=== PATIENT | female | born 1955 | race African-American/Black ===

== ENCOUNTER 2023-01-05 19:06 | Inpatient (IN) | payer OTHER ==
[~2023-01-05] VITALS: Ht 170.2 cm; Wt 104.3 kg
[2023-01-05] MEDS ORDERED: AMIODARONE 150 MG in IV D5W 100 ML IV ONE (19:30)
[2023-01-05] MEDS ORDERED: AMIODARONE 450 MG in IV D5W 250 ML IV ONE (19:30)
[2023-01-05] MEDS ORDERED: IV NS 0.9% 1,000 ML BAG IV ONE (19:30)
[2023-01-05 19:43] LABS: BASOPHILS # (AUTO) 0.2 K/uL (0.0-0.2); BASOPHILS % (AUTO) 2.1 % (0.0-2.0); EOSINOPHILS # (AUTO) 0.3 K/uL (0.0-0.7); EOSINOPHILS % (AUTO) 2.9 % (0.0-6.0); HEMATOCRIT 45 % (33-45); HEMOGLOBIN 14.6 g/dL (11.5-14.8); LYMPHOCYTES # (AUTO) 1.8 K/uL (0.8-4.8); LYMPHOCYTES % (AUTO) 16.5 % (20.0-44.0); MEAN CORPUSCULAR HEMOGLOBIN 30 PG (26.0-33.0); MEAN CORPUSCULAR HGB CONC 33 g/dl (31.0-36.0); MEAN CORPUSCULAR VOLUME 93 fL (82-100); MONOCYTES # (AUTO) 0.3 K/uL (0.1-1.30); MONOCYTES % (AUTO) 2.4 % (2.0-12.0); NEUTROPHILS # (AUTO) 8.4 K/uL (1.8-8.9); NEUTROPHILS % (AUTO) 76.1 % (43.0-81.0); PLATELET COUNT (AUTO) 274 K/uL (150-450); RED BLOOD CELL COUNT(AUTO) 4.82 MIL/uL (4.0-5.2); RED CELL DISTRIBUTION WIDTH 13.9 % (11.5-15.0); WHITE BLOOD COUNT (AUTO) 11.1 K/uL (4.3-11.0)
[2023-01-05] MEDS ORDERED: FENTANYL PF 100MCG/2ML AMPUL IV ONE (20:00)
[2023-01-05] MEDS ORDERED: FENTANYL PF 100MCG/2ML AMPUL ONE (20:00)
[2023-01-05] MEDS ORDERED: ONDANSETRON HCL/PF 4 MG/2 ML VIAL ONE (20:00)
[2023-01-05] MEDS ORDERED: ONDANSETRON HCL/PF 4 MG/2 ML VIAL IV ONE (20:00)
[2023-01-05 20:06] LABS: CALCIUM, SERUM 9.7 mg/dL (8.5-10.1); CARBON DIOXIDE 22 mmol/L (21-32); CHLORIDE 97 mmol/L (98-107); CREATININE 1.2 mg/dL (0.6-1.3); GLUCOSE 334 mg/dL (74-106); POTASSIUM 4.3 mmol/L (3.5-5.1); SODIUM SERUM 133 mmol/L (136-145); UREA NITROGEN, BLOOD 11 mg/dL (7-18)
[2023-01-05 20:18] LABS: NT-PRO BNP 65 pg/mL (0-125)
[2023-01-05 21:37] LABS: EOSINOPHILS % (MANUAL) 2 % (0-4); LYMPHOCYTES % (MANUAL) 29 % (16-48); MONOCYTES % (MANUAL) 7 % (0-11.0); NEUTROPHILS % (MANUAL) 62 (42-76); PLATELET ESTIMATE ADEQUATE
[2023-01-05] MEDS ORDERED: MAGNESIUM HYDROXIDE 30 ML UDC PO PRN (22:00)
[2023-01-05] MEDS ORDERED: MORPHINE SULFATE INJ 2 MG/ML DISP.SYRIN IV PRN (22:00)
[2023-01-05] MEDS ORDERED: HYDROCODONE/APAP 5/325MG TABLET PO PRN (22:00)
[2023-01-05] MEDS ORDERED: BLOOD SUGAR DIAGNOSTIC 1 EACH STRIP IN SCH (22:00)
[2023-01-05] MEDS ORDERED: INSULIN REGULAR, HUMAN 100 UNIT/ML 3 ML VIAL SQ PRN (22:00)
[2023-01-05] MEDS ORDERED: ONDANSETRON HCL/PF 4 MG/2 ML VIAL IVP PRN (22:00)
[2023-01-05] MEDS ORDERED: Z GUARD REMEDY 4 OZ OINT TP PRN (22:00)
[2023-01-05] MEDS ORDERED: DEXTROSE 50%-WATER 50 ML DISP.SYRIN IV PRN ×2 (22:00)
[2023-01-05] MEDS ORDERED: MAG HYDROX/AL HYDROX/SIMETH 30 ML UDC PO PRN (22:00)
[2023-01-05] MEDS ORDERED: ACETAMINOPHEN 325 MG TABLET PO PRN (22:00)
[2023-01-05] MEDS: BLOOD SUGAR DIAGNOSTIC 1 EACH STRIP IN SCH (22:48)
[2023-01-05] MEDS: TEMAZEPAM 15 MG CAPSULE PO PRN (23:21)
[2023-01-06] VITALS (7 sets, daily range): BP systolic 106–160; BP diastolic 51–84; TEMP 97.5–98.2; O2SAT 95–98
[2023-01-06] MEDS: INSULIN GLARGINE, 100 UNIT/ML CARTRIDGE SQ SCH ×2 (01:03→21:27)
[2023-01-06] MEDS ORDERED: AMIODARONE 150 MG/3 ML VIAL IV ONE (06:02)
[2023-01-06] MEDS ORDERED: AMIODARONE 450 MG in IV D5W 241 ML IV PRN (07:00)
[2023-01-06 07:08] LABS: BASOPHILS % (AUTO) 0.2 % (0.0-2.0); EOSINOPHILS # (AUTO) 0.2 K/uL (0.0-0.7); EOSINOPHILS % (AUTO) 2.2 % (0.0-6.0); HEMATOCRIT 39 % (33-45); HEMOGLOBIN 12.7 g/dL (11.5-14.8); LYMPHOCYTES # (AUTO) 2.3 K/uL (0.8-4.8); LYMPHOCYTES % (AUTO) 25.4 % (20.0-44.0); MEAN CORPUSCULAR HEMOGLOBIN 30 PG (26.0-33.0); MEAN CORPUSCULAR HGB CONC 33 g/dl (31.0-36.0); MEAN CORPUSCULAR VOLUME 92 fL (82-100); MONOCYTES # (AUTO) 0.8 K/uL (0.1-1.30); MONOCYTES % (AUTO) 8.4 % (2.0-12.0); NEUTROPHILS # (AUTO) 5.9 K/uL (1.8-8.9); NEUTROPHILS % (AUTO) 63.8 % (43.0-81.0); PLATELET COUNT (AUTO) 243 K/uL (150-450); RED BLOOD CELL COUNT(AUTO) 4.19 MIL/uL (4.0-5.2); RED CELL DISTRIBUTION WIDTH 13.7 % (11.5-15.0); WHITE BLOOD COUNT (AUTO) 9.2 K/uL (4.3-11.0)
[2023-01-06 07:32] LABS: CALCIUM, SERUM 8.8 mg/dL (8.5-10.1); MAGNESIUM 2.2 mg/dL (1.8-2.4); PHOSPHORUS 3.7 mg/dL (2.5-4.9); POTASSIUM 3.2 mmol/L (3.5-5.1)
[2023-01-06] MEDS: PANTOPRAZOLE 40 MG TABLET.DR PO SCH (07:44)
[2023-01-06] MEDS: BLOOD SUGAR DIAGNOSTIC 1 EACH STRIP IN SCH ×4 (07:45→21:05)
[2023-01-06 08:03] LABS: THYROID STIMULATING HORMONE 1.997 uIU/mL (0.358-3.74)
[2023-01-06] MEDS ORDERED: METF-881 PO (08:21)
[2023-01-06] MEDS ORDERED: GABA-532 PO (08:21)
[2023-01-06] MEDS ORDERED: VALS1TAB4 PO (08:21)
[2023-01-06] MEDS ORDERED: APIX5TAB PO (08:21)
[2023-01-06] MEDS ORDERED: TIMO5DRO EACHEYE (08:21)
[2023-01-06] MEDS ORDERED: FERR325T23 PO (08:21)
[2023-01-06] MEDS ORDERED: LATA2.5D15 EACHEYE (08:21)
[2023-01-06] MEDS ORDERED: SEMA1PEN SQ (08:21)
[2023-01-06] MEDS ORDERED: METO50TA7 PO (08:21)
[2023-01-06] MEDS ORDERED: CHOL100043 PO (08:21)
[2023-01-06] MEDS: INSULIN REGULAR, HUMAN 100 UNIT/ML 3 ML VIAL SQ PRN ×4 (08:36→21:27)
[2023-01-06] MEDS ORDERED: ATORVASTATIN 10 MG TABLET PO SCH (09:00)
[2023-01-06] MEDS: ASPIRIN 81 MG TAB.CHEW PO SCH (09:38)
[2023-01-06] MEDS: FERROUS SULFATE (325 MG) 325 MG/TAB TABLET PO SCH (09:38)
[2023-01-06] MEDS: POTASSIUM CHLORIDE 20 MEQ TAB.PRT.SR PO SCH ×3 (09:38→10:48)
[2023-01-06] MEDS: ENOXAPARIN SODIUM 100 MG/ML DISP.SYRIN SQ SCH ×2 (09:38→20:19)
[2023-01-06] MEDS: METOPROLOL SUCCINATE 50 MG TAB.SR.24H PO SCH (09:38)
[2023-01-06] MEDS: AMIODARONE HCL 200 MG TABLET PO SCH ×3 (09:39→17:09)
[2023-01-06] MEDS: CARVEDILOL 6.25 MG TABLET PO SCH ×2 (09:39→20:15)
[2023-01-06] MEDS: VALSARTAN 80 MG TABLET PO SCH (09:43)
[2023-01-06] MEDS: CHOLECALCIFEROL 1,000 UNIT TABLET (VIT D3) PO SCH (09:44)
[2023-01-06] MEDS: HYDROCHLOROTHIAZIDE 25 MG TABLET PO SCH (09:45)
[2023-01-06] MEDS: TIMOLOL 0.25% SOL OPHTH 10 ML BOTTLE EACHEYE SCH ×2 (10:08→17:10)
[2023-01-06] MEDS ORDERED: FAMOTIDINE/PF INJ 20 MG/2 ML VIAL IV ONE (11:00)
[2023-01-06] MEDS ORDERED: diphenhydrAMINE HCL 50 MG/ML VIAL IV ONE (11:00)
[2023-01-06] MEDS ORDERED: methylPREDNISolone SOD SUCC 125 MG/2ML VIAL IV ONE (11:00)
[2023-01-06] MEDS ORDERED: MORPHINE SULFATE INJ 4 MG/ML DISP.SYRIN IV PRN (11:30)
[2023-01-06] MEDS ORDERED: CT SWABBABLE VALVE TRANS SET 1 EA INFUS.SET MC ONE (12:51)
[2023-01-06] MEDS ORDERED: IOHEXOL-350 100 ML VIAL IV ONE (12:51)
[2023-01-06] MEDS ORDERED: IV NS 0.9% 250 ML IV ONE (12:51)
[2023-01-06] MEDS: METOPROLOL TARTRATE INJ 5 MG/5 ML AMPUL IVP PRN ×4 (13:20→13:35)
[2023-01-06] MEDS ORDERED: METOPROLOL TARTRATE INJ 5 MG/5 ML AMPUL ONE (13:22)
[2023-01-06] MEDS ORDERED: NITROGLYCERIN 0.4 MG/TAB BOTTLE ONE (13:23)
[2023-01-06] MEDS ORDERED: NITROGLYCERIN 0.4 MG/TAB BOTTLE SL ONE (13:30)
[2023-01-06] MEDS: GABAPENTIN 300 MG CAPSULE PO SCH (21:05)
[2023-01-06] MEDS ORDERED: LATANOPROST EYE DROP 0.005% 2.5 ML BOTTLE EACHEYE SCH (22:00)
[2023-01-06] MEDS: TEMAZEPAM 15 MG CAPSULE PO PRN (23:40)
[2023-01-07] VITALS: BP 171/83; TEMP 97.7; O2SAT 98
[2023-01-07 04:20] VITALS: BP 106/75; TEMP 97.7; O2SAT 96
[2023-01-07 07:05] LABS: BASOPHILS # (AUTO) 0.1 K/uL (0.0-0.2); BASOPHILS % (AUTO) 0.7 % (0.0-2.0); HEMATOCRIT 40 % (33-45); HEMOGLOBIN 13.1 g/dL (11.5-14.8); LYMPHOCYTES # (AUTO) 1.4 K/uL (0.8-4.8); LYMPHOCYTES % (AUTO) 11.8 % (20.0-44.0); MEAN CORPUSCULAR HEMOGLOBIN 30 PG (26.0-33.0); MEAN CORPUSCULAR HGB CONC 33 g/dl (31.0-36.0); MEAN CORPUSCULAR VOLUME 93 fL (82-100); MONOCYTES # (AUTO) 0.4 K/uL (0.1-1.30); MONOCYTES % (AUTO) 3.7 % (2.0-12.0); NEUTROPHILS # (AUTO) 9.7 K/uL (1.8-8.9); NEUTROPHILS % (AUTO) 83.8 % (43.0-81.0); PLATELET COUNT (AUTO) 251 K/uL (150-450); RED BLOOD CELL COUNT(AUTO) 4.32 MIL/uL (4.0-5.2); RED CELL DISTRIBUTION WIDTH 13.6 % (11.5-15.0); WHITE BLOOD COUNT (AUTO) 11.5 K/uL (4.3-11.0)
[2023-01-07 08:00] VITALS: BP 128/69; TEMP 98.4; O2SAT 95
[2023-01-07 08:06] LABS: ALBUMIN 3.6 g/dL (3.4-5.0); BILIRUBIN,TOTAL 0.4 mg/dL (0.2-1.0); CALCIUM, SERUM 9.5 mg/dL (8.5-10.1); CREATININE 1.1 mg/dL (0.6-1.3); MAGNESIUM 2.2 mg/dL (1.8-2.4); PHOSPHORUS 3.5 mg/dL (2.5-4.9); POTASSIUM 4.4 mmol/L (3.5-5.1); TOTAL PROTEIN, SERUM 7.8 g/dL (6.4-8.2)
[2023-01-07] MEDS: BLOOD SUGAR DIAGNOSTIC 1 EACH STRIP IN SCH ×2 (08:15→12:18)
[2023-01-07] MEDS: ENOXAPARIN SODIUM 100 MG/ML DISP.SYRIN SQ SCH (08:35)
[2023-01-07] MEDS: INSULIN REGULAR, HUMAN 100 UNIT/ML 3 ML VIAL SQ PRN ×2 (08:35→12:19)
[2023-01-07] MEDS: CARVEDILOL 6.25 MG TABLET PO SCH (08:36)
[2023-01-07] MEDS: GABAPENTIN 300 MG CAPSULE PO SCH (08:37)
[2023-01-07] MEDS: VALSARTAN 80 MG TABLET PO SCH (08:37)
[2023-01-07] MEDS: HYDROCHLOROTHIAZIDE 25 MG TABLET PO SCH (08:38)
[2023-01-07] MEDS: FERROUS SULFATE (325 MG) 325 MG/TAB TABLET PO SCH (08:38)
[2023-01-07] MEDS: PANTOPRAZOLE 40 MG TABLET.DR PO SCH (08:40)
[2023-01-07] MEDS: ASPIRIN 81 MG TAB.CHEW PO SCH (08:40)
[2023-01-07] MEDS: AMIODARONE HCL 200 MG TABLET PO SCH ×2 (08:40→12:23)
[2023-01-07] MEDS: CHOLECALCIFEROL 1,000 UNIT TABLET (VIT D3) PO SCH (08:40)
[2023-01-07] MEDS: METOPROLOL SUCCINATE 50 MG TAB.SR.24H PO SCH (08:40)
[2023-01-07] MEDS: TIMOLOL 0.25% SOL OPHTH 10 ML BOTTLE EACHEYE SCH (08:44)
[2023-01-07 12:00] VITALS: BP 130/50; TEMP 98.7; O2SAT 95
[2023-01-07 12:23] VITALS: BP 130/50
[2023-01-07] MEDS ORDERED: AMIO200T5 PO (15:34)
[2023-01-07] MEDS ORDERED: LORA-259 PO (15:34)
== END 2023-01-07 16:00 | disposition home or self-care (01) | DRG 280 ==
LOC: ER 19:20 → TELE-TD 21:58 → TELE1 01-06 11:06
PROVIDERS: ADMIT Nurse Practitioner Acute Care; ATTEND Nurse Practitioner Acute Care
PROC: 05HB33Z Insertion of Infusion Device into Right Basilic Vein, Percutaneous Approach (ICD-10-PCS; principal; 2023-01-06)
DX: I48.91 Unspecified atrial fibrillation (principal); I21.A1 Myocardial infarction type 2; I50.33 Acute on chronic diastolic (congestive) heart failure; J90 Pleural effusion, not elsewhere classified; I11.0 Hypertensive heart disease with heart failure; E78.5 Hyperlipidemia, unspecified; E11.65 Type 2 diabetes mellitus with hyperglycemia; E87.6 Hypokalemia; Z88.0 Allergy status to penicillin; Z90.11 Acquired absence of right breast and nipple; F12.90 Cannabis use, unspecified, uncomplicated; G47.33 Obstructive sleep apnea (adult) (pediatric); Z79.01 Long term (current) use of anticoagulants; Z79.4 Long term (current) use of insulin; E66.9 Obesity, unspecified; Z68.35 Body mass index [BMI] 35.0-35.9, adult; K57.30 Diverticulosis of large intestine without perforation or abscess without bleeding; H40.9 Unspecified glaucoma; I70.0 Atherosclerosis of aorta; D25.9 Leiomyoma of uterus, unspecified
CPT/HCPCS: 36415; 71045-TC; 71250-TC; 75574; 80048-TC; 80053-TC; 80061-TC; 82962-TC; 83735-TC; 83880; 84100-TC; 84443-TC; 84484-TC; 85025-TC; 93307-TC; A4223; G0378; J0282; J1200; J1650; J1815; J2270; J2405; J2930; J3010; J3490; J7030; J7050; J7060; Q9967